=== PATIENT | male | born 1995 | race Caucasian/White ===

== ENCOUNTER 2016-12-29 22:20 | Emergency (ER) | payer BC ==
--- NOTE | 2016-12-29 22:23 | UCPHY ---
H & P Patient Type: New HPI/ROS: HPI CHIEF COMPLAINT: Right ear pain x2 hours HISTORY OF PRESENT ILLNESS: This patient very pleasant 21-year-old male, presents Urgent Care at 10:30 a.m. at night for 2 hours of right ear pain. He does tell me that he has a history of TMJ is times when he opens his jaw very wide he gets pain in his right jaw all and symptoms right ear. He states he left work this evening developed acute onset of right ear pain. No drainage, no fever, no sore throat, no congestion. Tells me the pain is located inside his ear. Past Medical History: No significant medical history Past Surgical History: No significant surgical history Social History: Denies daily use of alcohol or tobacco products, does endorse marijuana occasionally Family History: noncontributory ROS REVIEW OF SYSTEMS: A comprehensive 10 point review of systems is otherwise negative aside from elements mentioned in the history of present illness. Exam Constitutional triage nursing summary reviewed, vital signs reviewed, awake/ alert. Eyes normal conjunctivae and sclera, EOMI, PERRLA. HENT right TM slightly erythematous, little bit of fluid behind it, no significant bulge, right ear canal is erythematous, there is no drainage of fluid or discharge, does not have pain with manipulation of the external ear, is no mastoid tenderness, no lymphadenopathy, posterior pharynx unremarkable normal inspection, atraumatic, moist mucus membranes, no epistaxis, neck supple / no meningismus, no raccoon eyes. It is noted the left TM is normal Respiratory clear to auscultation bilaterally, normal breath sounds, no respiratory distress, no wheezing. Cardiovascular rate normal, regular rhythm, no murmur, no edema, distal pulses normal. Gastrointestinal soft, non-tender, no rebound, no guarding, normal bowel sounds, no distension, no pulsatile mass. Genitourinary no CVA tenderness. Musculoskeletal no midline vertebral tenderness, full range of motion, no calf swelling, no tenderness of extremities, no meningismus, good pulses, neurovascularly intact. Skin pink, warm, & dry, no rash, skin atraumatic. Neurologic awake, alert and oriented x 3, AAOx3, moves all 4 extremities equally, motor intact, sensory intact, CN II-XII intact, normal cerebellar, normal vision, normal speech. Psychiatric normal mood/affect. Heme/Lymph/Immune no lymphadenopathy. Differential Diagnosis: Includes but is not limited to in a particular order, early otitis media, otitis externa, TMJ referred pain Medical Decision Making: Do the redness of the right TM and redness of the external ear canal place him on amoxicillin, Ciprodex ear drops and ibuprofen and guaifenesin. He understands that he needs follow-up with ENT. Understands return emergency room urgent care if develops worsening pain, fever headache vomiting or any questions or concerns. Re-evaluation: Source: Patient - Family History Significant Family History: No pertinent family hx Allergies/Adverse Reactions: No Known Allergies Allergy (Unverified 12/29/16 22:35) Home Medications: Medication Instructions Recorded AZITHROMYCIN [Z-PACK] 250 mg PO DAILY #6 tab 12/29/16 Ciprofloxacin HCl/Dexameth 7.5 ml OT BID #1 drops.susp 12/29/16 [Ciprodex Otic Suspension] Guaifenesin [Guaifenesin ER] 600 mg PO BID #14 tab.er.12h 12/29/16 Ibuprofen [Motrin (*)] 800 mg PO Q6-8PRN #10 tab 12/29/16 Departure - Departure Disposition: Home, Routine, Self-Care Clinical Impression: Otalgia Qualifiers: Laterality: right Qualified Code(s): H92.01 - Otalgia, right ear Condition: Good Instructions: Otitis Externa (ED), Otitis Media (ED) Additional Instructions: 1. Drink lots of fluids stay well-hydrated 2. Take ibuprofen for pain control. 3.Take antibiotics as prescribed. 4.Please follow up with ENT Referrals: NONE *PRIMARY CARE P,. [Primary Care Provider] - As per Instructions Alea Ibrahim MD [Medical Doctor] - As per Instructions Prescriptions: AZITHROMYCIN [Z-PACK] 250 mg PO DAILY #6 tab Ciprofloxacin HCl/Dexameth [Ciprodex Otic Suspension] 7.5 ml OT BID #1 drops.susp Guaifenesin [Guaifenesin ER] 600 mg PO BID #14 tab.er.12h Ibuprofen [Motrin (*)] 800 mg PO Q6-8PRN #10 tab - PQRS PQRS Measurement: n/a
[2016-12-29 22:39] VITALS: BP 155/91; PULSE 75; RESP 14; O2SAT 96
[2016-12-29 22:42] VITALS: TEMP 98.4
== END 2016-12-29 22:51 | disposition home or self-care (01) ==
LOC: CED 22:20
DX: H92.01 Otalgia, right ear (principal)
CPT/HCPCS: 99204-PO; G0463-PO